=== PATIENT | female | born 1985 | race Caucasian/White ===

== ENCOUNTER 2024-08-02 09:50 | Emergency (ER) | payer MEDICAID, SELFPAY ==
[2024-08-02 09:51] VITALS: BMI 39.3
--- NOTE | 2024-08-02 10:23 | EDNOTE_ITS ---
ED Dental RME/HPI General Chief complaint: Dental/Oral/Throat Stated complaint: LEFT LOWER TOOTH ABCESS Time Seen by Provider: 08/02/24 10:28 Source: patient Arrival date/time: 08/02/24 09:50 39-year-old female with no known medical history presents to the emergency room with a chief complaint of a broken tooth to the left lower molar. Patient states this is causing her a lot of pain and swelling to her jaw Mode of arrival: ambulatory Limitations: no limitations Related Data Home Medications ?Medication ?Instructions ?Recorded ?Confirmed vit no.95-ferrous 1 tab PO DAILY 03/15/19 fumarate 28 mg-folic acid 800 mcg tablet () Previous Rx's ?Medication ?Instructions ?Recorded clindamycin HCl 300 mg capsule 300 mg PO TID 7 days #2 1 caps 08/02/24 ibuprofen 600 mg tablet 600 mg PO Q8H PRN fever or p ain 08/02/24 #20 tabs Allergies Allergy/AdvReac Type Severity Reaction Status Date / Time No Known Allergies Allergy Verified 08/02/24 09:53 Review of Systems Review of Systems Systems Reviewed: All systems reviewed, normal except as documented Constitutional Constitutional: Reports system reviewed and no additional complaints, except as documented, Denies fatigue, Denies fever(s), Denies headache(s) and Denies weakness Eyes Eyes: Reports system reviewed and no additional complaints, except as documented, Denies blurry vision and Denies change in vision ENT Ears, Nose, Mouth, and Throat: Reports system reviewed and no additional complaints, except as documented, Reports dental pain, Denies otalgia, Denies headache(s), Denies nasal congestion, Denies throat swelling and Denies vertigo Cardiovascular Cardiovascular: Reports system reviewed and no additional complaints, except as documented, Denies chest pain, Denies dyspnea and Denies dyspnea on exertion Respiratory Respiratory: Reports system reviewed and no additional complaints, except as documented, Denies chest congestion, Denies cough, Denies dyspnea, Denies dyspnea on exertion and Denies wheezing Gastrointestinal Gastrointestinal: Reports system reviewed and no additional complaints, except as documented, Denies abdominal pain, Denies cramping, Denies nausea and Denies vomiting Genitourinary Genitourinary: Reports system reviewed and no additional complaints, except as documented Musculoskeletal Musculoskeletal: Reports system reviewed and no additional complaints, except as documented and Denies back pain Integumentary/Breasts Skin/Breast: Reports system reviewed and no additional complaints, except as documented and Denies wounds Neurologic Neurologic: Reports system reviewed and no additional complaints, except as documented, Denies confusion, Denies headache(s), Denies lack of coordination, Denies vertigo and Denies weakness Psychiatric Psychiatric: Reports system reviewed and no additional complaints, except as documented, Denies anxiety, Denies confusion, Denies depression, Denies paranoia, Denies suicidal ideation and Denies tactile hallucinations Endocrine Endocrine: Reports system reviewed and no additional complaints, except as documented and Denies fatigue Hematologic/Lymphatic Hematologic/Lymphatic: Reports system reviewed and no additional complaints, except as documented and Denies lymphadenopathy Allergic/Immunologic Allergic/Immunologic: Reports system reviewed and no additional complaints, except as documented, Denies throat swelling, Denies urticaria and Denies wheezing Past Medical History Past Medical History NEUROLOGIC: Negative Neurological Disorders or Seizures CARDIAC: Negative Cardiac Disorders or Congestive Heart Failure RESPIRATORY: Negative Chronic Obstructive Pulmonary Disease (COPD) GASTROINTESTINAL: Negative Gastrointestinal Disorders, Hepatitis or Colorectal Cancer GENITOURINARY: Negative Genitourinary Disorders, Renal Disease or Prostate Cancer REPRODUCTIVE: Positive Previous Pregnancies (1 SAB); Negative Breast Cancer, Endometriosis, Pelvic Inflammatory Disease, Testicular Cancer or Uterine Prolapse MUSCULOSKELETAL: Positive Musculoskeletal Disorders; Negative Bone Cancer ENDOCRINE: Positive Endocrine Disorders; Negative Diabetes Mellitus Type 1 or Diabetes Mellitus Type 2 HEMATOLOGIC: Negative Blood Disorders or Anemia PSYCHO/SOCIAL: Positive Depression and Anxiety OTHER HISTORY: Positive Chicken Pox ( A CHILD); Negative Hospitalization, Autoimmune Disease, Down Syndrome, Developmental Delay, Shingles, Falls, Blood Transfusions, Blood Transfusion Reaction, Anesthesia Reactions, Organ Transplant, Chemotherapy, Radiation Therapy, Hyperbaric Therapy, MRSA, VRSA, Vancomycin-Resistant Enterococci, Human Immunodeficiency Virus (HIV), Measles, Mumps, Rubella (G[place]ian Measles), Pertussis, Clostridium Difficile, Cancer, Breast Cancer, Cervical Cancer, Colorectal Cancer, Lung Cancer, Ovarian Cancer, Prostate Cancer or Testicular Cancer Family History FAMILY HISTORY: Positive Family Psychiatric Problems (MOTHER AND BROTHER- BIPLOLAR SCHIZOPHRENIC,), Family Respiratory Disorders (GRANDMA- SLEEP APNEA), Family Cardiac Disorders (mother- HTN, GRANDPA- HEART ATTACK), Family Gastrointestinal Problems (AUNT- GALLSTONES) and Family Cancer (UNCLE- HODGKINS); Negative Family Surgery or Family Anesthesia Reaction Surgical History SURGICAL: Positive Section; Negative Organ Transplant Social History SMOKING STATUS: Never smoker ED Exam General Limitations: Present no limitations General appearance: Present alert and in no apparent distress Head Head exam: Present atraumatic Eye Eye exam: Present normal appearance, PERRL and EOMI ENT ENT exam: Present normal exam, normal oropharynx and mucous membranes moist Expanded ENT Exam Teeth exam: Present dental caries, fractured tooth # and dental tenderness # Teeth numbered: 2 1. Fractured and Dental Tenderness 2. Fractured and Dental Tenderness Neck Neck exam: Present normal inspection, full ROM and trachea midline Chest Chest inspection: Present normal inspection and symmetric chest wall rise Respiratory Respiratory exam: Present normal lung sounds bilaterally Cardiovascular Cardiovascular exam: Present regular rate, normal rhythm and normal heart sounds Abdominal Exam Abdominal exam: Present soft and normal bowel sounds Extremities Exam Extremities exam: Present normal inspection and full ROM Back Exam Back exam: Present normal inspection and full ROM Neurological Exam Neurological exam: Present alert, oriented X3 and CN II-XII intact Psychiatric Psychiatric exam: Present normal affect and normal mood Skin Skin exam: Present warm, dry, intact and normal color Course Quality Measures none Orders Category Date Time Status Clindamycin Vial [Cleocin vial] Med 08/02/24 10:23 Discontinued 600 mg IM X1 ONE Ketorolac Inj [Toradol Inj] Med 08/02/24 10:23 Discontinued 30 mg IM X1 ONE Vital Signs Vital signs: Vital Signs Temperature 98.1 F 08/02/24 10:27 Respiratory Rate 17 08/02/24 10:27 Blood Pressure 120/83 08/02/24 10:27 Pulse Oximetry (%) 97 08/02/24 10:27 Oxygen Delivery Method Room Air 08/02/24 10:27 Dental / Oral MDM Narrative MDM Narrative:: 39-year-old female with no known medical history presents to the emergency room with a chief complaint of a broken tooth to the left lower molar. Patient states this is causing her a lot of pain and swelling to her jaw Patient is hemodynamically stable and in no apparent distress. Patient denies any difficulty swallowing or swelling to her throat or lips. Physical examination shows a fractured left back molar bilaterally. Patient has multiple fractured teeth and states she called her dentist and they told her they were going to schedule an appointment to surgically remove it. Antibiotics were given to the patient, pain medication was given to the patient. Patient was educated to return to the emergency room for any evidence of worsening signs or symptoms Patient data External records reviewed:: [facility] previous records Clinical information provided by:: patient Social determinants that could affect healthcare access:: none Patient has the following chronic illnesses:: No chronic illness How is presenting disease/condition affected by chronic disease/condition?: no chronic disease Evaluation data The following diagnostics were reviewed and interpreted by me:: lab results and radiology exam(s) Lab and/or radiology exams considered but not ordered:: Labs and radiology exams considered in order Interpretation Summary: N/A Medications / Prescriptions Medications or Prescriptions considered but not ordered:: Medication given Medication administrations:: Medication Administration History Discontinued Medications Clindamycin Phosphate (Clindamycin Phos Inj 150 Mg/Ml Vial 6 Ml) 600 mg IM X1 ONE Stop: 08/02/24 10:24 Last Admin: 08/02/24 10:58 Dose: 600 mg Documented By: GM Ketorolac Tromethamine (Ketorolac Inj 60 Mg/2 Ml Vial) 30 mg IM X1 ONE Stop: 08/02/24 10:24 Last Admin: 08/02/24 10:59 Dose: 30 mg Documented By: GM Medication given Consultations Consultation(s) initiated? (list below): No Diagnosis Dental Differential Diagnosis: gingival abscess, dental caries, toothache and dental abscess Most likely diagnosis given after review of the tests above:: Toothache Admission Indicated Admission indicated?: not indicated Admission Request Was there a request for admission?: No Disposition Plan Disposition Plan: Discharge Discharge Attestation Discharge Attestation: The patient and all family members were given an opportunity to ask questions and understood the discharge instructions. Discharge instructions specifically effects, indications for sooner follow up or return to the emergency department, and the expected course of current diagnosis. Patient condition: Stable Discharge Plan Plan Patient Disposition: HOME (Self Care) Disposition Comment: Stable Prescriptions/Referrals Prescriptions/Med Rec: New clindamycin HCl 300 mg capsule 300 mg PO TID 7 Days Qty: 21 0RF ibuprofen 600 mg tablet 600 mg PO Q8H PRN (Reason: fever or pain) Qty: 20 0RF No Action PNV cmb#95-ferrous fumarate-FA [] 28 mg iron- 800 mcg Tablet 1 tab PO DAILY Problem List Clinical Impression: Toothache Patient/Caregiver Discharge Instructions Education Materials: ED Dental Pain Additional Instructions: Please follow-up with your dentist in the next 24 to 48 hours. Medication was sent to your pharmacy please pick it up and take it as indicated. For any evidence of worsening signs or symptoms return to the emergency room immediately Print Language: Croatian Stand Alone Forms: Hali Award Info., Work/School Release, Patient Portal Info Letter PA/BOILERMAKER PIPE FITTER Supervising Physician PA/BOILERMAKER PIPE FITTER Supervising Physician: Dr. Patterson
[2024-08-02 10:27] VITALS: BP 120/83; RESP 17; TEMP 36.7; O2SAT 97; BMI 38.8
[2024-08-02 10:57] VITALS: BP 122/82; PULSE 74; RESP 18; TEMP 36.7; O2SAT 98
[2024-08-02] MEDS: CLINDAMYCIN PHOS INJ 150 MG/ML VIAL 6 ML 600 MG IM (10:58)
[2024-08-02] MEDS: KETOROLAC INJ 60 MG/2 ML VIAL 30 MG IM (10:59)
== END 2024-08-02 11:07 | disposition home or self-care (01) ==
LOC: SERX 11:14
PROVIDERS: Emergency Provider Emergency Medicine
DX: K08.89 Other specified disorders of teeth and supporting structures (principal)
CPT/HCPCS: 96372; 99283; J0736; J1885

== ENCOUNTER 2024-09-16 08:34 | Emergency (ER) | payer MEDICAID, SELFPAY ==
[2024-09-16 08:35] VITALS: BMI 39.1
[2024-09-16 08:46] VITALS: BP 146/92; PULSE 74; RESP 16; TEMP 36.8; O2SAT 95
[2024-09-16] MEDS: CLINDAMYCIN 150 MG CAPSULE 300 MG PO (09:06)
[2024-09-16] MEDS: KETOROLAC INJ 60 MG/2 ML VIAL 30 MG IM (09:07)
[2024-09-16] MEDS: HYDROcodone/APAP 5/325 TABLET 1 TAB PO (09:07)
--- NOTE | 2024-09-16 09:15 | EDNOTE_ITS ---
ED Dental RME/HPI General Chief complaint: Dental/Oral/Throat Stated complaint: THOOTH PAIN Time Seen by Provider: 09/16/24 08:43 Arrival date/time: 09/16/24 08:34 This is a case of 39-year-old female who came in in the emergency room due to left upper dental pain history of present illness started 1 week prior to arrival in the emergency room and the patient fracture her left tooth wisdom tooth and started to have pain and mild swelling patient states that she will see her dentist at the end of this month patient denies any other symptoms no fever no chills no ear pain no sore throat no drooling of saliva patient can speak full sentences patient is able to open and close widely her mouth Limitations: no limitations Related Data Home Medications ?Medication ?Instructions ?Recorded ?Confirmed vit no.95-ferrous 1 tab PO DAILY 03/15/19 fumarate 28 mg-folic acid 800 mcg tablet () Previous Rx's ?Medication ?Instructions ?Recorded ibuprofen 600 mg tablet 600 mg PO Q8H PRN fever or p ain 08/02/24 #20 tabs clindamycin HCl 300 mg capsule 300 mg PO Q6H 10 days # 40 caps 09/16/24 tramadol 50 mg tablet 50 mg PO Q6H PRN pain #10 ta bs 09/16/24 Allergies Allergy/AdvReac Type Severity Reaction Status Date / Time No Known Allergies Allergy Verified 09/16/24 08:37 Review of Systems Review of Systems Systems Reviewed: All systems reviewed, normal except as documented Constitutional Constitutional: Reports system reviewed and no additional complaints, except as documented and Denies headache(s) ENT Ears, Nose, Mouth, and Throat: Reports system reviewed and no additional complaints, except as documented, Reports as per HPI, Denies abnormal hearing, Denies bleeding gums, Denies change in voice, Reports dental pain, Denies disequilibrium, Denies dizziness, Denies dry mouth, Denies dysphagia, Denies ear discharge, Denies otalgia, Denies epistaxis, Denies facial pain, Denies halitosis, Denies headache(s), Denies hearing loss, Denies hoarseness, Denies lip swelling, Denies mouth lesions, Denies mouth pain, Denies nasal congestion, Denies nasal discharge, Denies nasal obstruction, Denies nasal trauma, Denies neck mass, Denies neck pain, Denies nose pain, Denies odynophagia, Denies post nasal drip, Denies sinus pain, Denies sinus pressure, Denies sore throat, Denies throat swelling, Denies tinnitus, Denies tongue swelling and Denies vertigo Cardiovascular Cardiovascular: Reports system reviewed and no additional complaints, except as documented and Reports as per HPI Respiratory Respiratory: Reports system reviewed and no additional complaints, except as documented and Reports as per HPI Gastrointestinal Gastrointestinal: Reports system reviewed and no additional complaints, except as documented, Reports as per HPI, Denies dysphagia and Denies odynophagia Genitourinary Genitourinary: Reports system reviewed and no additional complaints, except as documented and Reports as per HPI Musculoskeletal Musculoskeletal: Denies neck pain Neurologic Neurologic: Reports system reviewed and no additional complaints, except as documented, Reports as per HPI, Denies abnormal hearing, Denies disequilibrium, Denies dizziness, Denies headache(s) and Denies vertigo Allergic/Immunologic Allergic/Immunologic: Denies lip swelling, Denies throat swelling and Denies tongue swelling Past Medical History Past Medical History NEUROLOGIC: Negative Neurological Disorders or Seizures CARDIAC: Negative Cardiac Disorders or Congestive Heart Failure RESPIRATORY: Negative Chronic Obstructive Pulmonary Disease (COPD) GASTROINTESTINAL: Negative Gastrointestinal Disorders, Hepatitis or Colorectal Cancer GENITOURINARY: Negative Genitourinary Disorders, Renal Disease or Prostate Cancer REPRODUCTIVE: Positive Previous Pregnancies (1 SAB); Negative Breast Cancer, Endometriosis, Pelvic Inflammatory Disease, Testicular Cancer or Uterine Prolapse MUSCULOSKELETAL: Positive Musculoskeletal Disorders; Negative Bone Cancer ENDOCRINE: Positive Endocrine Disorders; Negative Diabetes Mellitus Type 1 or Diabetes Mellitus Type 2 HEMATOLOGIC: Negative Blood Disorders or Anemia PSYCHO/SOCIAL: Positive Depression and Anxiety OTHER HISTORY: Positive Chicken Pox ( A CHILD); Negative Hospitalization, Autoimmune Disease, Down Syndrome, Developmental Delay, Shingles, Falls, Blood Transfusions, Blood Transfusion Reaction, Anesthesia Reactions, Organ Transplant, Chemotherapy, Radiation Therapy, Hyperbaric Therapy, MRSA, VRSA, Vancomycin-Resistant Enterococci, Human Immunodeficiency Virus (HIV), Measles, Mumps, Rubella (Sami Measles), Pertussis, Clostridium Difficile, Cancer, Breast Cancer, Cervical Cancer, Colorectal Cancer, Lung Cancer, Ovarian Cancer, Prostate Cancer or Testicular Cancer Family History FAMILY HISTORY: Positive Family Psychiatric Problems (MOTHER AND BROTHER- BIPLOLAR SCHIZOPHRENIC,), Family Respiratory Disorders (GRANDMA- SLEEP APNEA), Family Cardiac Disorders (mother- HTN, GRANDPA- HEART ATTACK), Family Gastrointestinal Problems (AUNT- GALLSTONES) and Family Cancer (UNCLE- HODGKINS); Negative Family Surgery or Family Anesthesia Reaction Surgical History SURGICAL: Positive Section; Negative Organ Transplant Social History SMOKING STATUS: Never smoker ED Exam General Limitations: Present no limitations General appearance: Present alert and in no apparent distress Head Head exam: Present atraumatic Eye Eye exam: Present normal appearance, PERRL and EOMI ENT ENT exam: Present normal exam, normal oropharynx and mucous membranes moist Expanded ENT Exam Teeth exam: Present other (No swelling of the right jaw mandible no drooling of saliva patient is able to open and close the mouth widely) Teeth numbered: 2 1. Fractured (Patient noted to have fractured teeth on tooth #1 with mild dental tenderness), Dental Tenderness (Tooth #1) and Other (Mild swelling no abscess dental carry no cellulitis) Neck Neck exam: Present normal inspection, full ROM and trachea midline Chest Chest inspection: Present normal inspection and symmetric chest wall rise Respiratory Respiratory exam: Present normal lung sounds bilaterally; Absent respiratory distress, wheezes, stridor, accessory muscle use or prolonged expiratory phase Cardiovascular Cardiovascular exam: Present regular rate, normal rhythm and normal heart sounds Abdominal Exam Abdominal exam: Present soft and normal bowel sounds Extremities Exam Extremities exam: Present normal inspection and full ROM Back Exam Back exam: Present normal inspection and full ROM Neurological Exam Neurological exam: Present alert, oriented X3, CN II-XII intact, normal gait and reflexes normal; Absent motor sensory deficit Psychiatric Psychiatric exam: Present normal affect and normal mood Skin Skin exam: Present warm, dry, intact and normal color Course Quality Measures none Orders Category Date Time Status Clindamycin [Cleocin] Med 09/16/24 08:52 Discontinued 300 mg PO X1 ONE HYDROcodone*/APAP 5/325 [[place] 5/325] Med 09/16/24 08:52 Discontinued 1 tab PO X1 ONE Ketorolac Inj [Toradol Inj] Med 09/16/24 08:52 Discontinued 30 mg IM X1 ONE Vital Signs Vital signs: Vital Signs Temperature 98.2 F 09/16/24 08:46 Pulse Rate 74 09/16/24 08:46 Respiratory Rate 16 09/16/24 08:46 Blood Pressure 146/92 H 09/16/24 08:46 Pulse Oximetry (%) 95 09/16/24 08:46 Oxygen Delivery Method Room Air 09/16/24 08:46 Oxygen saturation room air 95% Dental / Oral MDM Narrative MDM Narrative:: This is a case of 39-year-old female who came in in the emergency room due to left upper dental pain history of present illness started 1 week prior to arrival in the emergency room and the patient fracture her left tooth wisdom tooth and started to have pain and mild swelling patient states that she will see her dentist at the end of this month patient denies any other symptoms no fever no chills no ear pain no sore throat no drooling of saliva patient can speak full sentences patient is able to open and close widely her mouth patient is awake alert oriented not in distress nontoxic looking vital signs stable afebrile not tachycardic not tachypneic not hypoxic patient noted to have tooth #1 mild to moderate tenderness with mild swelling with fracture and dental caries tooth abscess mild and red gum swelling the mandible were normal no drooling of saliva no signs and symptoms of Cedric's angina patient was given a Toradol here in the emergency room and [place] which relieved and resolve the pain patient started on clindamycin here patient will be discharged with clindamycin for the infection of the tooth and tramadol for pain patient stated that she is not breastfed anymore patient will follow up and call her dentist in 2 days for reevaluation and possible dental procedure patient will follow-up also with primary care physician for reevaluation and for any worsening symptoms or any emergent concerns she will return in the emergency room immediately or call 911 oral care is advised Patient was discharged with comfortable condition walking with stable gait. Patient verbalized no further complains explained diagnosis and answered patient question. Patient is comfortable with the proposed management plan including the need to follow up with his/her primary care physician and any specialist if applicable Discussed patient for any urgent condition or worsening sx, He/She needed to go to emergency room immediately or call 911. Patient acknowledge the responsibility to follow up as instructed and to monitor her/his symptoms. For any persistence of the symptoms for more than 3-5 days return precaution advised. Discussed the result of the test and was given printed discharge instruction Patient data External records reviewed:: [facility] previous records Clinical information provided by:: patient Social determinants that could affect healthcare access:: none Patient has the following chronic illnesses:: None How is presenting disease/condition affected by chronic disease/condition?: no chronic disease Evaluation data The following diagnostics were reviewed and interpreted by me:: other (specify) (None) Lab and/or radiology exams considered but not ordered:: None Interpretation Summary: None Medications / Prescriptions Medications or Prescriptions considered but not ordered:: Reviewed Medication administrations:: Medication Administration History Discontinued Medications Hydrocodone Bitart/Acetaminophen (Hydrocodone/Apap 5/325 Tablet) 1 tab PO X1 ONE Stop: 09/16/24 08:53 Last Admin: 09/16/24 09:07 Dose: 1 tab Documented By: SHRUTI Clindamycin HCl (Clindamycin 150 Mg Capsule) 300 mg PO X1 ONE Stop: 09/16/24 08:53 Last Admin: 09/16/24 09:06 Dose: 300 mg Documented By: SHRUTI Ketorolac Tromethamine (Ketorolac Inj 60 Mg/2 Ml Vial) 30 mg IM X1 ONE Stop: 09/16/24 08:53 Last Admin: 09/16/24 09:07 Dose: 30 mg Documented By: SHRUTI Reviewed Consultations Consultation(s) initiated? (list below): No Diagnosis Dental Differential Diagnosis: gingival abscess, dental caries, toothache and dental abscess Most likely diagnosis given after review of the tests above:: Tooth abscess Admission Indicated Admission indicated?: not indicated Explain why admission is indicated or not indicated:: Not indicated Admission Request Was there a request for admission?: No Admission Attestation Admission request attestation: Not indicated Disposition Plan Disposition Plan: Discharge Discharge Attestation Discharge Attestation: The patient and all family members were given an opportunity to ask questions and understood the discharge instructions. Discharge instructions specifically effects, indications for sooner follow up or return to the emergency department, and the expected course of current diagnosis. Patient condition: Stable Discharge Plan Plan Patient Disposition: HOME (Self Care) Prescriptions/Referrals Prescriptions/Med Rec: New tramadol 50 mg tablet 50 mg PO Q6H PRN (Reason: pain) Qty: 10 0RF clindamycin HCl 300 mg capsule 300 mg PO Q6H 10 Days Qty: 40 0RF No Action PNV cmb#95-ferrous fumarate-FA [] 28 mg iron- 800 mcg Tablet 1 tab PO DAILY ibuprofen 600 mg tablet 600 mg PO Q8H PRN (Reason: fever or pain) Qty: 20 0RF Problem List Clinical Impression: Fracture of tooth, Abscessed tooth, Toothache Patient/Caregiver Discharge Instructions Education Materials: ED Tooth Abscess Additional Instructions: Follow-up with your primary care physician in 2 days for reevaluation it is very important to see your dentist in 2 days for reevaluation and possible dental procedure for any worsening symptoms or any emergent concerns return to the emergency room immediately or call 911 finish the course of antibiotic Print Language: Kinyarwanda Stand Alone Forms: Hali Award Info., Patient Portal Info Letter PA/MEDIA MARKETING COORDINATOR Supervising Physician PA/MEDIA MARKETING COORDINATOR Supervising Physician: dr waterman
== END 2024-09-16 09:12 | disposition home or self-care (01) ==
LOC: SERX 09:46
PROVIDERS: Emergency Provider Family Medicine; PCP Family Medicine
DX: S02.5XXA Fracture of tooth (traumatic), initial encounter for closed fracture (principal); K04.7 Periapical abscess without sinus; X58.XXXA Exposure to other specified factors, initial encounter
CPT/HCPCS: 96372; 99283; J1885; A9270

== ENCOUNTER 2024-12-27 18:30 | Emergency (ER) | payer MEDICAID, SELFPAY ==
[2024-12-27 18:38] VITALS: PULSE 78; RESP 18; O2SAT 98
[2024-12-27 18:42] VITALS: BMI 45.6
[2024-12-27 18:43] VITALS: BP 107/67; PULSE 84; RESP 18; O2SAT 100
--- NOTE | 2024-12-27 18:43 | PD.EDANX ---
ED Anxiety RME/HPI General Chief Complaint: Anxiety Stated Complaint: EMOTIONAL NAUSEA Time Seen by Provider: 12/27/24 18:36 Arrival date/time: 12/27/24 18:30 RME / HPI RME / HPI narrative: Dr. Lopez?s Main ED Evaluation: 39yo female with no significant past medical history BIBA from home presents to the ED for complaints of a headache and nausea. Patient reports associated blurry vision and general malaise. She does not specify when her symptoms started. She denies currently being . NKA. Related Data Home Medications ?Medication ?Instructions ?Recorded ?Confirmed vit no.95-ferrous 1 tab PO DAILY 03/15/19 11/25/23 fumarate 28 mg-folic acid 800 mcg tablet () Previous Rx's ?Medication ?Instructions ?Recorded ibuprofen 600 mg tablet 600 mg PO Q8H PRN fever or pain 08/02/24 #20 tabs tramadol 50 mg tablet 50 mg PO Q6H PRN pain #10 tabs 09/16/24 metoclopramide HCl 10 mg tablet 10 mg PO Q6H PRN nausea and 12/27/24 (Reglan) vomiting #20 tabs Allergies Allergy/AdvReac Type Severity Reaction Status Date / Time No Known Allergies Allergy Verified 09/16/24 08:37 Review of Systems Review of Systems Systems Reviewed: All systems reviewed, normal except as documented ED Exam Narrative Physical exam: Generally patient is alert in mild to moderate distress secondary to pain heart regular rate and rhythm, lungs clear to auscultation equal bilaterally, abdomen soft bowel sounds present nondistended diffusely tender without rebound, skin is cool pale and dry, neurologic exam Gautier Coma Scale of 15 Course Quality Measures none Anxiety MDM Narrative MDM Narrative: Scribe Attestation: 12/27/24 - Marla Nino am scribing for and in the presence of Dr. Lopez. Patient's urinary tox screen in the past has been positive for marijuana. She did not give us a urine sample here in the emergency room. Patient was hydrated with a liter normal saline and given Reglan 10 mg IV and Haldol 5 mg IV for nausea and vomiting with a history of marijuana use. She had a slight increased anion gap metabolic acidosis. Her blood sugar is 161. Patient feels better and wishes to go home. She does not want undergo the CAT scan of the abdomen and pelvis and repeat basic metabolic panel. Lactic acid came back slightly high at 3.4. I explained to the patient we need to finish the workup and she again is refusing further workup and wishes to go home and will sign out AGAINST MEDICAL ADVICE. Patient is alert and oriented and has the capacity to sign out AGAINST MEDICAL ADVICE and she was fully informed of the risk of signing out AGAINST MEDICAL ADVICE which include worsening of condition and . She is willing to take those risks. Patient will sign out AGAINST MEDICAL ADVICE. Patient data External records reviewed:: [facility] previous records (Per chart review, patient has no relevant previous ED visits.) and EMS form Clinical information provided by:: patient Social determinants that could affect healthcare access:: none Patient has the following chronic illnesses:: none How is presenting disease/condition affected by chronic disease/condition?: no chronic disease Evaluation data The following diagnostics were reviewed and interpreted by me:: lab results Lab and/or radiology exams considered but not ordered:: none Interpretation Summary: [place] [facility] Report Signed Patient: BRAULIO TAMAYO [facility] Record#: [id number] Birthdate: 1985 Age/Sex: 39 / F Location: [facility] Attending Dr: Ordering Physician: Bhavesh Lopez DO Date of Service: 12/27/24 Procedure(s): XR chest 1V portable Accession Number(s): [id number] cc: Attila Rodriguez MD; Cruz Hood MD; Bhavesh Lopez DO~ Examination: AP chest single view Technique: AP portable semiupright chest single view Date and time: December 27, 2024 1957 hrs. Indications: Chest pain today. Findings: No significant cardiac enlargement taking into account AP projection No pneumonia or pulmonary edema. Mild elevation right hemidiaphragm. Impression: No pneumonia or pulmonary edema Dictated By: Cruz Hood MD Signed By: <Electronically signed by Cruz Hood MD in > 12/27/249 Medications / Prescriptions Medications or Prescriptions considered but not ordered:: none Medication administrations:: none Consultations Consultation(s) initiated? (list below): No Diagnosis Differential diagnosis anxiety: other (See MDM) Most likely diagnosis given after review of the tests above:: see clinical impression below Admission Indicated Admission indicated?: not indicated Admission Request Was there a request for admission?: No Disposition Plan Disposition Plan: other (specify) (Against Medical Advice) Discharge Plan Plan Patient Disposition: Left Against Medical Advice Prescriptions/Referrals Prescriptions/Med Rec: New metoclopramide HCl [Reglan] 10 mg tablet 10 mg PO Q6H PRN (Reason: nausea and vomiting) Qty: 20 0RF No Action PNV no.95-ferrous fumarate-FA [] 28 mg iron- 800 mcg Tablet 1 tab PO DAILY ibuprofen 600 mg tablet 600 mg PO Q8H PRN (Reason: fever or pain) Qty: 20 0RF tramadol 50 mg tablet 50 mg PO Q6H PRN (Reason: pain) Qty: 10 0RF Referrals: Attila Rodriguez MD [Primary Care Provider, Family Practice] - In 1 week Problem List Clinical Impression: Cephalgia, Dehydration Patient/Caregiver Discharge Instructions Education Materials: ED Dehydration (Adult) Additional Instructions: Keep well-hydrated. Reglan as prescribed. Follow-up with your physician. Return to ER as needed or if condition worsens. You are signing out AGAINST MEDICAL ADVICE. Print Language: Croatian
[2024-12-27 19:07] VITALS: BP 107/67; PULSE 68; RESP 19; TEMP 36; O2SAT 100
[2024-12-27 19:15] LABS: Base Excess, Venous -2 (-3-3); O2 Saturation, Venous 90 % (96-97); PCO2, Venous 23 mmHg (36-56); PO2, Venous 48 mmHg (15-58); pH, Venous 7.52 (7.33-7.66)
[2024-12-27 19:17] LABS: Basophils # (Auto) 0.1 Thou/mm3 (0.0-0.2); Basophils % (Auto) 1 % (0-2.5); Eosinophils # (Auto) 0.2 Thou/mm3 (0.0-0.5); Eosinophils % (Auto) 1 % (0-10); Hematocrit 39.5 % (36.0-46.0); Hemoglobin 13.6 g/dL (12.0-16.0); Immature Granulocytes Auto 0.05 Thou/mm3 (0.00-0.00); Lymphocytes # (Auto) 1.1 Thou/mm3 (1.0-4.8); Lymphocytes % (Auto) 8 % (10-50); Mean Corpuscular HGB Conc 34.4 g/dl (31.0-37.0); Mean Corpuscular Hemoglobin 30.6 pg (25.0-35.0); Mean Corpuscular Volume 89 fL (80-100); Monocytes # (Auto) 0.4 Thou/mm3 (0.0-0.8); Monocytes % (Auto) 3 % (0-12); Neutrophils # (Auto) 11.2 Thou/mm3 (1.8-7.7); Neutrophils % (Auto) 87 % (37-80); Nucleated Red Blood Cell # 0.00 Thou/mm3 (0.00-0.00); Nucleated Red Blood Cell % 0 /100 WBC (0); Platelet Count 257 Thou/mm3 (140-440); RDW Standard Deviation 40.9 fL (36.4-46.3); Red Blood Count 4.44 Miln/mm3 (4.00-5.20); White Blood Count 12.9 Thou/mm3 (3.6-11.0)
[2024-12-27] MEDS: METOCLOPRAMIDE INJ 5 MG/ML VIAL 2 ML 10 MG IVP (19:18)
[2024-12-27] MEDS: SODIUM CHLORIDE 0.9% 1000 ML 1,000 ML 999 ML IV (19:18)
[2024-12-27 19:26] LABS: Beta Hydroxybutyrate 0.4 mmol/L (<0.6)
[2024-12-27 19:38] LABS: Alanine Aminotransferase 19 U/L (10-49); Albumin, Serum 4.7 gm/dL (3.5-5.0); Albumin/Globulin Ratio 1.8 (1.2-2.2); Alkaline Phosphatase 79 U/L (46-116); Amylase 54 U/L (30-118); Anion Gap 17 (7-16); Aspartate Amino Transferase 19 U/L (0-34); BUN/Creatinine Ratio 11 Ratio (12-20); Beta HCG,Quantitative < 1 mIU/mL (<5.0); Bilirubin,Total 0.4 mg/dL (0.3-1.2); Blood Urea Nitrogen 9 mg/dL (9-23); Calcium 9.6 mg/dL (8.3-10.6); Calcium (Corrected) 9.6 mg/dL (8.5-10.1); Carbon Dioxide 18.2 mMol/L (20.0-31.0); Chloride 105 mMol/L (98-107); Creatinine (Component) 0.8 mg/dL (0.6-1.3); Estimated Creatinine Clearance 141.0 mL/min (>60); Globulin 2.6 gm/dL (2.3-3.5); Glucose 161 mg/dL (74-106); Osmolality,Calculated 281 (275-295); Potassium 3.3 mMol/L (3.4-5.1); Sodium 140 mMol/L (136-145); Total Protein 7.3 gm/dL (5.7-8.2); eGFR > 60 See Note
--- NOTE | 2024-12-27 19:46 | XR_ITS ---
Examination: AP chest single view Technique: AP portable semiupright chest single view Date and time: December 27, 20247 hrs. Indications: Chest pain today. Findings: No significant cardiac enlargement taking into account AP projection No pneumonia or pulmonary edema. Mild elevation right hemidiaphragm. Impression: No pneumonia or pulmonary edema
[2024-12-27 21:02] LABS: Lactate (Lactic Acid) 3.4 mMol/L (0.4-2.0)
[2024-12-27 21:09] LABS: Collection Type, Urine Voided
[2024-12-27 21:20] LABS: Bacteria,Urine Rare; Bilirubin,Urine Negative (Negative); Blood,Urine 2+ (Negative); Clarity,Urine Turbid (Clear/Hazy); Color,Urine Yellow (Lt Yel-Yel); Glucose, Urine Negative (Negative); Ketones,Urine 4+ (Negative); Leukocyte Esterase,Urine Positive (Negative); Nitrite,Urine Negative (Negative); PH,Urine 6.0 (5.0-7.0); Protein,Urine 1+ (Neg - Trace); RBC,Urine 4 /hpf (0-3); Specific Gravity,Urine 1.030 (1.001-1.035); Squamous Epithelial Cell,Urine 9 /hpf (0-5); Urobilinogen,Urine Negative mg/dL (0.0-1.0); WBC,Urine 16 /hpf (0-5)
[2024-12-27 21:23] LABS: Anion Gap 15 (7-16); BUN/Creatinine Ratio 16 Ratio (12-20); Blood Urea Nitrogen 11 mg/dL (9-23); Calcium 9.0 mg/dL (8.3-10.6); Carbon Dioxide 18.0 mMol/L (20.0-31.0); Chloride 107 mMol/L (98-107); Creatinine (Component) 0.7 mg/dL (0.6-1.3); Estimated Creatinine Clearance 161.2 mL/min (>60); Glucose 139 mg/dL (74-106); Osmolality,Calculated 280 (275-295); Potassium 3.3 mMol/L (3.4-5.1); Sodium 140 mMol/L (136-145); eGFR > 60 See Note
[2024-12-27 21:40] LABS: Amphetamine/Methamp Scrn,U Negative (Negative); Barbiturate Screen,Urine Negative (Negative); Benzodiazepines Screen,Urine Negative (Negative); Benzoylecgonine Screen, Ur Negative (Negative); Fentanyl Screen,Urine Negative (Negative); Opiate Screen,Urine Negative (Negative); THC Screen,Urine Positive (Negative)
--- NOTE | 2024-12-27 21:51 | PC.NURSE ---
@[address] SCAN, AND MEDICATIONS ORDER BY . PT STATING SHE FEELS BETTER AND WOULD LIKE TO BE DISCHARGED. MD LEGGETT MADE AWARE AND STATES PT WILL BE LEAVING AMA. PT GIVEN AMA FORM, PT INFORMED OF ALL RISKS AND CONSEQUENCES UP TO AND INCLUDING . PT STATES SHE VERBALLY UNDERSTANDS. PT A/O X4 GCS15 AT THIS TIME AND AMUBLATED OUT OF ROOM 6 WITHOUT ANY ISSUES.
[2024-12-28 00:01] LABS: Reflex Lactate? Y
== END 2024-12-27 21:55 | disposition left against medical advice (07) ==
PROVIDERS: Emergency Provider Emergency Medicine; PCP Family Medicine
DX: E86.0 Dehydration (principal); R07.9 Chest pain, unspecified
CPT/HCPCS: 36415; 71045; 80048; 80053; 80307; 81001; 82010; 82150; 82803; 83605; 84702; 85025; 96361; 96374; 99284; J2765; J7030